=== PATIENT | female | born 1985 ===

== ENCOUNTER 2019-07-08 13:21 | Emergency (ER) | payer OTHER ==
[~2019-07-08] VITALS: Ht 162.6 cm; Wt 45.4 kg
[2019-07-08 13:39] VITALS: Ht 162.6 cm; Wt 45.4 kg
[2019-07-08 16:59] VITALS: BP 132/100
== END 2019-07-08 16:59 ==
LOC: ED 13:21
DX: T45.0X1A Poisoning by antiallergic and antiemetic drugs, accidental (unintentional), initial encounter (principal); T43.4X1A Poisoning by butyrophenone and thiothixene neuroleptics, accidental (unintentional), initial encounter; Y92.89 Other specified places as the place of occurrence of the external cause
CPT/HCPCS: J7030